=== PATIENT | male | born 2000 | race Caucasian/White ===

== ENCOUNTER 2019-10-25 00:25 | Emergency (ER) | payer OTHER ==
[~2019-10-25] VITALS: Ht 177.8 cm; Wt 97.5 kg
[2019-10-25] MEDS ORDERED: IBUPROFEN 800800 MG PO (01:47)
[2019-10-25 01:53] VITALS: BP 121/66
== END 2019-10-25 01:54 | disposition home or self-care (01) ==
LOC: M.ERS 00:25
DX: S93.491A Sprain of other ligament of right ankle, initial encounter (principal); F17.210 Nicotine dependence, cigarettes, uncomplicated; W08.XXXA Fall from other furniture, initial encounter; Y93.39 Activity, other involving climbing, rappelling and jumping off; Y92.89 Other specified places as the place of occurrence of the external cause; Y99.8 Other external cause status

== ENCOUNTER 2019-12-13 16:49 | Emergency (ER) | payer OTHER ==
[~2019-12-13] VITALS: Ht 177.8 cm; Wt 90.7 kg
[~2019-12-13 16:49] MED LIST: IBUPROFEN 800800 MG PO
[2019-12-13 17:16] LABS: ABSOLUTE LYMPHOCYTES 1.2 thou/uL (0.8-5.3); ABSOLUTE MONOCYTES 0.4 thou/uL (0.0-1.2); ABSOLUTE NEUTROPHILS 5.1 thou/uL (1.6-8.1); BASOPHILS 0.5 %; EOSINOPHILS 0.7 %; HEMOGLOBIN 16.5 gm/dL (14.0-18.0); MCH 30.5 pg (26.0-34.0); MCHC 35.1 g/dL (28.0-37.0); MCV 86.8 fL (80.0-100.0); NUCLEATED RBCS 0 /100WBC; PLATELET COUNT* 234 thou/uL (150-400); POLYS 74.8 %; RBC 5.41 mil/uL (4.50-6.00); RDW-CV 12.6 % (10.5-14.5); WBC 6.8 thou/uL (4.0-11.0)
[2019-12-13 17:26] LABS: CALCIUM 9.3 mg/dL (8.5-10.1); CREATININE 1.1 mg/dL (0.6-1.3)
[2019-12-13 17:31] LABS: ALBUMIN 4.4 g/dL (3.4-5.0); TOTAL BILIRUBIN 0.5 mg/dL (<0.1-1.0); TOTAL PROTEIN 8.2 g/dL (6.4-8.2)
[2019-12-13] MEDS ORDERED: ONDANSETRON HCL4 M2 PO (17:47)
[2019-12-13 18:01] VITALS: BP 132/76
== END 2019-12-13 18:03 | disposition home or self-care (01) ==
LOC: M.ERS 16:49
PROVIDERS: Physician Assistant
DX: R11.2 Nausea with vomiting, unspecified (principal); R10.13 Epigastric pain; F17.210 Nicotine dependence, cigarettes, uncomplicated

== ENCOUNTER 2019-12-22 02:27 | Emergency (ER) | payer OTHER ==
[~2019-12-22] VITALS: Ht 177.8 cm; Wt 93.0 kg
[~2019-12-22 02:27] MED LIST changes: +ONDANSETRON HCL4 M2 PO
[2019-12-22 02:57] LABS: ABSOLUTE EOSINOPHILS 0.1 thou/uL (0.0-0.7); ABSOLUTE LYMPHOCYTES 2.3 thou/uL (0.8-5.3); ABSOLUTE MONOCYTES 0.7 thou/uL (0.0-1.2); BASOPHILS 0.6 %; EOSINOPHILS 2.4 %; HEMATOCRIT 47.4 % (42.0-52.0); HEMOGLOBIN 16.7 gm/dL (14.0-18.0); LYMPHOCYTES 37.3 %; MCH 30.6 pg (26.0-34.0); MCHC 35.3 g/dL (28.0-37.0); MCV 86.7 fL (80.0-100.0); MONOCYTES 10.9 %; MPV 7.3 fl. (7.2-11.1); NUCLEATED RBCS 0 /100WBC; PLATELET COUNT* 210 thou/uL (150-400); POLYS 48.8 %; RBC 5.47 mil/uL (4.50-6.00); RDW-CV 12.5 % (10.5-14.5); URINE BILIRUBIN NEGATIVE (Negative); URINE BLOOD NEGATIVE (Negative); URINE CLARITY CLOUDY; URINE COLOR YELLOW; URINE GLUCOSE-RANDOM NEGATIVE (Negative); URINE KETONES TRACE (Negative); URINE LEUKOCYTES-REFLEX NEGATIVE (Negative); URINE NITRITE-REFLEX NEGATIVE (Negative); URINE PROTEIN NEGATIVE (Negative); WBC 6.1 thou/uL (4.0-11.0)
[2019-12-22 03:06] LABS: CALCIUM 9.1 mg/dL (8.5-10.1); POTASSIUM 3.6 mmol/L (3.5-5.1)
[2019-12-22 03:11] LABS: ALBUMIN 4.2 g/dL (3.4-5.0); AMP/METHAMP Negative (Negative); BARBITURATES Negative (Negative); BENZODIAZEPINES Negative (Negative); COCAINE Negative (Negative); MAGNESIUM 2.1 mg/dL (1.8-2.4); METHADONE Negative (Negative); OPIATES Negative (Negative); PCP Negative (Negative); THC Negative (Negative); TOTAL BILIRUBIN 0.3 mg/dL (<0.1-1.0); TOTAL PROTEIN 7.7 g/dL (6.4-8.2)
[2019-12-22] MEDS ORDERED: CLONAZEPAM 0.50.5 M1 PO (04:21)
[2019-12-22 04:28] VITALS: BP 122/64
--- NOTE | 2019-12-22 10:26 | EKG ---
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
== END 2019-12-22 04:28 | disposition home or self-care (01) ==
LOC: M.ERS 02:27
PROVIDERS: Emergency Medicine
DX: R56.9 Unspecified convulsions (principal); F17.210 Nicotine dependence, cigarettes, uncomplicated

== ENCOUNTER 2020-04-11 18:00 | Emergency (ER) | payer OTHER ==
[~2020-04-11] VITALS: Ht 180.3 cm; Wt 86.2 kg
[~2020-04-11 18:00] MED LIST changes: +CLONAZEPAM 0.50.5 M1 PO
[2020-04-11 19:56] VITALS: BP 131/79
== END 2020-04-11 19:57 | disposition home or self-care (01) ==
LOC: M.ERS 18:00
DX: J06.9 Acute upper respiratory infection, unspecified (principal); Z20.828 Contact with and (suspected) exposure to other viral communicable diseases; Z98.890 Other specified postprocedural states

== ENCOUNTER 2020-05-23 22:15 | Emergency (ER) | payer OTHER ==
[~2020-05-23] VITALS: Ht 175.3 cm; Wt 80.3 kg
[2020-05-23 23:37] VITALS: BP 135/72
== END 2020-05-23 23:38 | disposition home or self-care (01) ==
LOC: M.ERS 22:15
DX: M79.89 Other specified soft tissue disorders (principal); M79.641 Pain in right hand

== ENCOUNTER 2020-09-12 10:47 | Emergency (ER) | payer OTHER ==
[~2020-09-12] VITALS: Ht 177.8 cm; Wt 76.2 kg
[2020-09-12 11:09] VITALS: BP 153/97
[2020-09-12] MEDS ORDERED: HYDROCODON-ACE1 EAC7 PO (11:17)
[2020-09-12] MEDS ORDERED: AMOXICILLIN 50500 MG PO (11:17)
== END 2020-09-12 11:35 | disposition home or self-care (01) ==
LOC: M.ERS 10:47
DX: K04.7 Periapical abscess without sinus (principal); K02.9 Dental caries, unspecified; R22.0 Localized swelling, mass and lump, head